=== PATIENT | male | born 1995 | race Caucasian/White ===

== ENCOUNTER 2024-01-26 15:39 | Emergency (ER) | payer BC, SELFPAY ==
[2024-01-26 15:44] VITALS: BP 145/84; PULSE 112; RESP 18; TEMP 36.8
== END 2024-01-26 18:27 | disposition left against medical advice (07) ==
LOC: ER 15:57
PROVIDERS: Emergency Provider Physician Assistant
DX: Z53.21 Procedure and treatment not carried out due to patient leaving prior to being seen by health care provider (principal)